=== PATIENT | female | born 1955 | race Caucasian/White ===

== ENCOUNTER → 2018-09-03 | Outpatient (CLI) | payer OTHER ==
[~2018-09-03] MED LIST: BENADRYL25 MG PO; CELEBREX 200 M200 M1 PO; ESTRACE0.5 MG PO; LEVOTHYROXINE0.05 MG PO; OMEPRAZOLE 20 M20 M1 PO; PROVERA2.5 MG PO; QUININE SULFAT324 MG PO; TRAMADOL 50 MG50 MG PO
== END ==
LOC: RAD 11:16
DX: M25.462 Effusion, left knee (principal); M25.862 Other specified joint disorders, left knee